=== PATIENT | male | born 1950 | race Caucasian/White ===

== ENCOUNTER 2023-07-09 14:53 | Inpatient (IN) | payer OTHER, MEDICARE ==
[2023-07-09 15:24] LABS: Glucose,Whole Blood 132 mg/dL (70-110)
--- NOTE | 2023-07-09 15:34 | XR ---
EXAMINATION TYPE: XR chest 1V portable DATE OF EXAM: 07/09/2023 HISTORY: Shortness of breath. COMPARISON: None. TECHNIQUE: Single view of the chest is submitted. FINDINGS: Demonstrated are scattered senescent parenchymal change. There is no evidence for focal infiltrate. 1.4 cm right upper lobe pulmonary nodule. Nonemergent CT c orrelation recommended. The heart is stable. Hilar and mediastinal structures are within normal limits. Degenerative changes are seen of the dorsal spine. IMPRESSION: 1. Chronic changes without evidence for acute pulmonary disease.
--- NOTE | 2023-07-09 15:35 | XR ---
EXAMINATION TYPE: XR pelvis AP view DATE OF EXAM: 07/09/2023 CLINICAL HISTORY: pain TECHNIQUE: Single view the pelvis is submitted. FINDINGS: No evidence for fracture, dislocation or bony lesion. Joint spaces are well-preserved. L eft hip prosthesis in place. SI joints appear symmetric. IMPRESSION: 1. No acute fracture or dislocation seen. ICD 10 NO FRACTURE, INITIAL EVALUATION
[2023-07-09 16:01] LABS: Basophils % (A) 0 %; Eosinophils # (A) 0.1 k/uL (0-0.7); Eosinophils % (A) 1 %; HCT 51.5 % (39.0-53.0); HGB 16.7 gm/dL (13.0-17.5); Lymphocytes % (A) 16 %; MCH 31.1 pg (25.0-35.0); MCHC 32.5 g/dL (31.0-37.0); MCV 95.6 fL (80.0-100.0); Mean Platelet Volume 8.6; Monocytes # (A) 0.4 k/uL (0-1.0); Monocytes % (A) 6 %; Neutrophils # (A) 4.8 k/uL (1.3-7.7); Neutrophils % (A) 75 %; Platelet Count 117 k/uL (150-450); RBC 5.38 m/uL (4.30-5.90); RDW 14.8 % (11.5-15.5); WBC 6.4 k/uL (3.8-10.6)
[2023-07-09 16:03] LABS: ALT 29 U/L (4-49); AST 42 U/L (17-59); African American GFR (CKD) >90 (>60 ml/min/1.73 sqM); Albumin 4.3 g/dL (3.5-5.0); Alcohol <10 mg/dL; Alkaline Phosphatase 69 U/L (38-126); Anion Gap 13 mmol/L; Blood Urea Nitrogen 18 mg/dL (9-20); Carbon Dioxide 24 mmol/L (22-30); Chloride 99 mmol/L (98-107); Glucose 135 mg/dL (74-99); Non-African American GFR(CKD) >90 (>60 ml/min/1.73 sqM); Potassium 4.4 mmol/L (3.5-5.1); Sodium 136 mmol/L (137-145); Total Bilirubin 1.1 mg/dL (0.2-1.3); Total Protein 7.3 g/dL (6.3-8.2)
[2023-07-09 16:04] LABS: Partial Thromboplastin Time 26.6 sec (22.0-30.0); Prothrombin Time 10.6 sec (9.0-12.0)
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
[2023-07-09] MEDS ORDERED: MORPHINE SULFATE 4 MG/ML SYRINGE IVP STA (16:17)
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
[2023-07-09 18:02] LABS: Amphetamine Screen,Urine Not Detected (NotDetected); Barbiturate Screen,Urine Not Detected (NotDetected); Benzodiazepines Screen,Urine Not Detected (NotDetected); Cocaine Screen,Urine Not Detected (NotDetected); Methadone Screen, Urine Not Detected (NotDetected); Opiate Screen,Urine Not Detected (NotDetected); Oxycodone Screen, Urine Not Detected (NotDetected); Phencyclidine Screen,Urine Not Detected (NotDetected); Tricyclic Antidepressant,Urine Not Detected (NotDetected); Urn Cannabinoid Scrn Detected (NotDetected)
[2023-07-09] MEDS ORDERED: DILTIAZEM DRIP BOLUS FROM BAG 1 MG SOLN IV ONE (18:16)
[2023-07-09] MEDS ORDERED: DILTIAZEM 125 MG in SODIUM CHLORIDE 0.9% 100 ML IV SCH (18:30)
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
[2023-07-09] MEDS ORDERED: NALOXONE 0.4 MG/ML 1 ML VIAL IV PRN (19:08)
[2023-07-09 21:25] LABS: Glucose,Whole Blood 142 mg/dL (70-110)
[2023-07-09] MEDS ORDERED: ATORVASTATIN 80 MG TAB PO SCH (23:15)
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
[2023-07-09] MEDS: GABAPENTIN 100 MG CAP PO SCH (23:39)
[2023-07-09] MEDS: APIXABAN 5 MG TAB PO SCH (23:39)
[2023-07-09] MEDS: METOPROLOL TARTRATE 50 MG TAB PO SCH (23:39)
[2023-07-10] MEDS: ACETAMINOPHEN TAB 325 MG TAB PO PRN ×2 (00:18→05:30)
[2023-07-10 06:04] LABS: Glucose,Whole Blood 154 mg/dL (70-110)
[2023-07-10] MEDS: INSULIN ASPART (NovoLOG) 100 UNIT/ML VIAL SQ SCH ×4 (06:30→20:25)
[2023-07-10 08:56] LABS: Basophils % (A) 0 %; Eosinophils # (A) 0.1 k/uL (0-0.7); Eosinophils % (A) 1 %; HCT 46.3 % (39.0-53.0); HGB 15.4 gm/dL (13.0-17.5); Lymphocytes # (A) 1.1 k/uL (1.0-4.8); Lymphocytes % (A) 18 %; MCH 32.3 pg (25.0-35.0); MCHC 33.3 g/dL (31.0-37.0); MCV 97.1 fL (80.0-100.0); Mean Platelet Volume 8.6; Monocytes # (A) 0.4 k/uL (0-1.0); Monocytes % (A) 6 %; Neutrophils # (A) 4.6 k/uL (1.3-7.7); Neutrophils % (A) 74 %; Platelet Count 118 k/uL (150-450); RBC 4.77 m/uL (4.30-5.90); RDW 14.8 % (11.5-15.5); WBC 6.3 k/uL (3.8-10.6)
[2023-07-10] MEDS: GABAPENTIN 100 MG CAP PO SCH ×3 (09:01→20:14)
[2023-07-10] MEDS: METOPROLOL TARTRATE 50 MG TAB PO SCH ×2 (09:02→20:14)
[2023-07-10] MEDS: APIXABAN 5 MG TAB PO SCH ×2 (09:02→20:14)
[2023-07-10 09:03] VITALS: RESP 18
[2023-07-10 09:11] LABS: African American GFR (CKD) >90 (>60 ml/min/1.73 sqM); Anion Gap 8 mmol/L; Blood Urea Nitrogen 19 mg/dL (9-20); Calcium 8.5 mg/dL (8.4-10.2); Carbon Dioxide 24 mmol/L (22-30); Chloride 103 mmol/L (98-107); Glucose 193 mg/dL (74-99); Non-African American GFR(CKD) >90 (>60 ml/min/1.73 sqM); Potassium 4.3 mmol/L (3.5-5.1); Sodium 135 mmol/L (137-145)
[2023-07-10 11:38] LABS: Glucose,Whole Blood 139 mg/dL (70-110)
[2023-07-10] MEDS ORDERED: ONDANSETRON 4 MG/2 ML VIAL IVP PRN (12:19)
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
--- NOTE | 2023-07-10 15:53 | P.PN ---
Subjective Progress Note Date: 07/10/23 No new complaints. Pt is fully oriented, and reports understanding of his situation. Nursing tells me he had nausea today and vomiting. Gen: awake, alert HEENT: normocephalic, atraumatic, good hearing acuity, moist mucous membranes Resp: good air exchange, breathing comfortably with no accessory muscle use CVS: good distal perfusion x 4, GI: soft, NTTP, ND : no SPT, no CVAT, espinal catheter not present MSK: no pitting edema, no clubbing Neuro: non-focal, moving all extremities Psych: cooperative, euthymic mood Assessment/Plan: Altered mental status, unclear etiology, suspect chronic in nature in light of history from , unable to rule out postconcussive syndrome A. fib with RVR Thrombocytopenia, no baseline available for comparison Chronic conditions: A. fib, CAD, type II DM Plan: Neurology consult, pending General surgery consulted post trauma, pending Continue Cardizem infusion for now = discontinued on 07/10 Continue home Lopressor and Eliquis dose C/w Cardiac monitoring Obtain Echocardiogram = pending Insulin sliding scale blood glucose monitoring Continue the following home medications: -Eliquis 5 mg po BID -Gabapentin 100 mg by mouth 3 times a day -Lopressor 100 mg by mouth twice a day -Crestor 40 minutes by mouth daily DVT prophylaxis: Eliquis The patient is admitted with an anticipated greater than 2 midnight stay for evaluation of AMS CODE STATUS: Full Code Discussed with: Patient Anticipated discharge place: Home Objective - Vital Signs Vital signs: Vital Signs Temp 98.0 F 07/10/23 15:30 Pulse 61 07/10/23 15:30 Resp 18 07/10/23 15:30 BP 133/85 07/10/23 15:30 Pulse Ox 96 07/10/23 15:30 FiO2 Intake & Output 07/09/23 07/10/23 07/10/23 18:59 06:59 18:59 Intake Total 240 Output Total 280 225 Balance -280 15 Weight 107.501 kg 107.501 kg Intake: Oral 240 Output: Gastric Drainage 0 Urine 280 225 Stool 0 Urine/Stool Mix 0 Emesis 0 Oral Regurgitation 0 Other 0 Other: Voiding Method Urinal Urinal # Voids 1 0 # Bowel Movements 0 - Labs CBC & Chem 7: 07/10/23 08:25 07/10/23 08:25 Labs: Abnormal Lab Results - Last 24 Hours (Table) 07/09/23 07/09/23 07/09/23 Range/Units 15:18 15:18 15:18 Plt Count 117 L (150-450) k/uL Sodium 136 L (137-145) mmol/L Glucose 135 H (74-99) mg/dL POC Glucose (mg/dL) (70-110) mg/dL U Marijuana (THC) Screen Detected H (NotDetected) 07/09/23 07/10/23 07/10/23 Range/Units 21:23 06:03 08:25 Plt Count 118 L (150-450) k/uL Sodium (137-145) mmol/L Glucose (74-99) mg/dL POC Glucose (mg/dL) 142 H 154 H (70-110) mg/dL U Marijuana (THC) Screen (NotDetected) 07/10/23 07/10/23 Range/Units 08:25 11:36 Plt Count (150-450) k/uL Sodium 135 L (137-145) mmol/L Glucose 193 H (74-99) mg/dL POC Glucose (mg/dL) 139 H (70-110) mg/dL U Marijuana (THC) Screen (NotDetected)
[2023-07-10 16:38] LABS: Glucose,Whole Blood 138 mg/dL (70-110)
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
[2023-07-10] MEDS: ATORVASTATIN 80 MG TAB PO SCH (20:14)
[2023-07-10 20:23] LABS: Glucose,Whole Blood 130 mg/dL (70-110)
[2023-07-10] MEDS ORDERED: MELATONIN 5 MG TABLET PO ONE (20:30)
[2023-07-11 06:17] LABS: Glucose,Whole Blood 130 mg/dL (70-110)
[2023-07-11] MEDS: INSULIN ASPART (NovoLOG) 100 UNIT/ML VIAL SQ SCH ×4 (06:25→21:00)
[2023-07-11] MEDS: GABAPENTIN 100 MG CAP PO SCH ×3 (08:11→21:01)
[2023-07-11] MEDS: METOPROLOL TARTRATE 50 MG TAB PO SCH ×2 (08:11→21:01)
[2023-07-11] MEDS: APIXABAN 5 MG TAB PO SCH ×2 (08:11→21:01)
[2023-07-11] MEDS ORDERED: LOPERAMIDE 2 MG CAP PO PRN (10:17)
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
[2023-07-11 11:16] LABS: Glucose,Whole Blood 126 mg/dL (70-110)
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
[2023-07-11 16:35] LABS: Glucose,Whole Blood 113 mg/dL (70-110)
[2023-07-11 20:21] LABS: Glucose,Whole Blood 133 mg/dL (70-110)
[2023-07-11] MEDS: ATORVASTATIN 80 MG TAB PO SCH (21:01)
[2023-07-11] MEDS: ACETAMINOPHEN TAB 325 MG TAB PO PRN (21:12)
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
[2023-07-12 06:22] LABS: Glucose,Whole Blood 118 mg/dL (70-110)
[2023-07-12] MEDS: INSULIN ASPART (NovoLOG) 100 UNIT/ML VIAL SQ SCH ×2 (06:34→11:43)
[2023-07-12] MEDS: METOPROLOL TARTRATE 50 MG TAB PO SCH (08:33)
[2023-07-12] MEDS: APIXABAN 5 MG TAB PO SCH (08:33)
[2023-07-12] MEDS: GABAPENTIN 100 MG CAP PO SCH (08:33)
[2023-07-12] MEDS ORDERED: MULTIVITAMINS, THERA 1 EACH TAB PO SCH (09:00)
[2023-07-12] MEDS ORDERED: THIAMINE 100 MG TAB PO SCH (09:00)
[2023-07-12] MEDS ORDERED: FOLIC ACID 1 MG TAB PO SCH (09:00)
--- NOTE | 2023-07-12 11:08 | P.PN ---
Subjective Progress Note Date: 07/12/23 Hospital course: Patient is a Physical exam: Vital signs reviewed and stable. General: Nontoxic, no distress and appears stated age. Derm: Skin warm and dry, normal coloration for ethnicity. Head: Atraumatic, normocephalic and symmetric. Eyes: EOMs intact, no lid lag, and anicteric sclera Mouth: no lip lesions, mucus membranes moist Cardiovascular: regular rate and rhythm with normal S1S2, no murmur, positive posterior tibial pulses bilaterally, and cap refill < 2 seconds. Lungs: Respirations even, regular, and unlabored on room air. Lungs CTA bilaterally, no rhonchi, no rales, no wheezing, and no accessory muscle usage. Abdominal: soft, nontender to palpation, no guarding, no appreciable organomegaly Ext: ROM intact. No gross muscle atrophy, no edema, no contractures Neuro: Speech clear, face symmetrical and CN II-XII grossly intact with no noted focal neuro deficits Psych: Alert and oriented to person, place, time, and situation. Appropriate and pleasant affect. Assessment and Plan of Care: CODE STATUS:[] DVT prophylaxis: [] Discussed with: [] Anticipated discharge date: [] Anticipated discharge place: [] Patient was seen independently by Nurse Pracitioner. This document was prepared using [employer]ening dictation software. Please allow for errors in cad operator, while rare they do occur. Objective - Vital Signs Vital signs: Vital Signs Temp 98 F 07/12/23 04:00 Pulse 71 07/12/23 04:00 Resp 18 07/12/23 04:00 BP 153/73 07/12/23 04:00 Pulse Ox 99 07/12/23 04:00 FiO2 Intake & Output 07/11/23 07/12/23 07/12/23 18:59 06:59 18:59 Intake Total 310 Balance 310 Intake: Oral 310 Other: Voiding Method Urinal Urinal # Voids 1 - Labs CBC & Chem 7: 07/10/23 08:25 07/10/23 08:25 Labs: Abnormal Lab Results - Last 24 Hours (Table) 07/11/23 07/11/23 07/11/23 Range/Units 11:14 16:34 20:19 POC Glucose (mg/dL) 126 H 113 H 133 H (70-110) mg/dL 07/12/23 Range/Units 06:17 POC Glucose (mg/dL) 118 H (70-110) mg/dL
[2023-07-12 11:41] LABS: Glucose,Whole Blood 149 mg/dL (70-110)
[2023-07-12 12:52] VITALS: BP 146/89; PULSE 60; TEMP 97.6
[2023-07-12] MEDS ORDERED: levETIRAcetam 500 MG TAB PO SCH (13:00)
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
[2023-07-12 13:41] LABS: Basophils % (A) 1 %; Eosinophils # (A) 0.1 k/uL (0-0.7); Eosinophils % (A) 2 %; HCT 51.6 % (39.0-53.0); HGB 17.1 gm/dL (13.0-17.5); Lymphocytes # (A) 1.4 k/uL (1.0-4.8); Lymphocytes % (A) 24 %; MCHC 33.1 g/dL (31.0-37.0); MCV 96.7 fL (80.0-100.0); Mean Platelet Volume 9.2; Monocytes # (A) 0.4 k/uL (0-1.0); Monocytes % (A) 7 %; Neutrophils # (A) 3.6 k/uL (1.3-7.7); Neutrophils % (A) 64 %; Platelet Count 133 k/uL (150-450); RBC 5.34 m/uL (4.30-5.90); RDW 14.9 % (11.5-15.5); WBC 5.7 k/uL (3.8-10.6)
--- NOTE | 2023-07-12 13:41 | EEG ---
ELECTROENCEPHALOGRAM REPORT CLINICAL HISTORY: This is a 72-year-old gentleman with an episode of altered mental status. The video EEG is obtained to evaluate for seizure and epileptiform activity. RELEVANT MEDICATIONS: Gabapentin. EEG TYPE: A routine 21-channel EEG with video using the 10/20 electrode placement system. DESCRIPTION: Wakefulness and drowsiness are obtained. During awake state, posterior-dominant rhythm consists of [id number] voltage of 9 Hz activity, that is well modulated and well sustained. There is no physiological stage II sleep architecture. There is no focal slowing. INTERICTAL AND ICTAL: None. ACTIVATION PROCEDURE: Photic stimulation did not evoke a posterior driving response. There is no abnormality during the photic stimulation. Hyperventilation is not performed. CLINICAL INTERPRETATION: This is a normal routine EEG. There is no focal slowing, epileptiform discharge, or seizure on the EEG. A normal routine EEG does not rule out underlying epilepsy. Clinical correlation is recommended. MARTHA / TAVARESN: [id number] /
[2023-07-12 14:05] LABS: African American GFR (CKD) >90 (>60 ml/min/1.73 sqM); Anion Gap 12 mmol/L; Blood Urea Nitrogen 20 mg/dL (9-20); Calcium 9.2 mg/dL (8.4-10.2); Carbon Dioxide 25 mmol/L (22-30); Chloride 101 mmol/L (98-107); Glucose 170 mg/dL (74-99); Non-African American GFR(CKD) >90 (>60 ml/min/1.73 sqM); Potassium 4.4 mmol/L (3.5-5.1); Sodium 138 mmol/L (137-145)
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
== END 2023-07-12 14:48 | disposition home or self-care (01) | DRG 103 ==
LOC: EC 14:53 → 3SCARD 19:08
PROVIDERS: ADMIT Internal Medicine; ATTEND Internal Medicine
PROC: 4A10X4Z Monitoring of Central Nervous Electrical Activity, External Approach (ICD-10-PCS; principal; 2023-07-12)
DX: F07.81 Postconcussional syndrome (principal); I42.9 Cardiomyopathy, unspecified; D69.6 Thrombocytopenia, unspecified; S00.03XA Contusion of scalp, initial encounter; M18.10 Unilateral primary osteoarthritis of first carpometacarpal joint, unspecified hand; I25.10 Atherosclerotic heart disease of native coronary artery without angina pectoris; E11.9 Type 2 diabetes mellitus without complications; I48.0 Paroxysmal atrial fibrillation; F43.10 Post-traumatic stress disorder, unspecified; E11.42 Type 2 diabetes mellitus with diabetic polyneuropathy; Z79.01 Long term (current) use of anticoagulants; E66.9 Obesity, unspecified; E78.5 Hyperlipidemia, unspecified; I10 Essential (primary) hypertension; I25.2 Old myocardial infarction; R11.2 Nausea with vomiting, unspecified; R10.9 Unspecified abdominal pain; F10.20 Alcohol dependence, uncomplicated; I70.0 Atherosclerosis of aorta; M48.02 Spinal stenosis, cervical region; I35.1 Nonrheumatic aortic (valve) insufficiency; Z79.84 Long term (current) use of oral hypoglycemic drugs; Z79.899 Other long term (current) drug therapy; Z90.49 Acquired absence of other specified parts of digestive tract; V89.2XXA Person injured in unspecified motor-vehicle accident, traffic, initial encounter; Y92.410 Unspecified street and highway as the place of occurrence of the external cause; Z71.51 Drug abuse counseling and surveillance of drug abuser
CPT/HCPCS: 36415; 70450; 71045; 71260; 72125; 72170; 74177; 80048; 80053; 80306; 80320; 82607; 82746; 83735; 84484; 85025; 85610; 85730; 86850; 86900; 86901; 87324; 93005; 93306; 93880; 94760; 95816; 96365; 96366; 96375; 99285